=== PATIENT | male | born 1965 | race African-American/Black ===

== ENCOUNTER 2019-02-19 09:11 | Emergency (ER) | payer MEDICAID ==
[~2019-02-19] VITALS: Ht 175.3 cm; Wt 104.4 kg
[2019-02-19 09:21] VITALS: BP 150/87
[2019-02-19] MEDS ORDERED: BLOOD GLUCOSE MONITORING 1 DEV DEV FS ONE (09:35)
--- NOTE | 2019-02-19 09:38 | NUR ---
BIB SELF. AAO X4, FULL CLEAR SPEECH. C/O FRONTAL HEADACHE 7/10 PAIN AND "HIGH BLOOD PRESSURE" X 3 DAYS. 149/95 AT HOME THIS AM. TOOK ASPIRIN 81 MG AND AMLODIPINE UNKNOWN DOSAGE TODAY. INCREASED URINARY FREQUENCY X 2 YEARS. DENIES N/V, DIZZINESS, SOB AND BLURRED VISION. STEADY GAIT. PERRLA, BRISK 3 MM. EQUAL HONORIO STRENGTH TO UPPER AND LOWER EXTREMITIES. HOB UP. BED SIDE RAILS UP X1. ON LOW BED POSITION, LOCKED. ER MADE AWARE OF PT STATUS.
--- NOTE | 2019-02-19 09:38 | NUR ---
PATIENT AMBULATED TO BED 3.
--- NOTE | 2019-02-19 10:07 | NUR ---
DR ROSEN AT BEDSIDE FOR PT EVALUATION
[2019-02-19 10:41] LABS: BASOPHILS % (AUTO) 1.3 % (0.0-2.0); EOSINOPHILS # (AUTO) 0.2 K/uL (0-0.4); EOSINOPHILS % (AUTO) 5.7 % (0.0-4.0); HEMATOCRIT 45.1 % (36-52); HEMOGLOBIN 15.7 g/dL (12.0-18.0); LYMPHOCYTES # (AUTO) 1.4 K/uL (2.0-11.5); LYMPHOCYTES % (AUTO) 38.2 % (20.5-51.1); MEAN CORPUSCULAR HEMOGLOBIN 34 pg (27-31); MEAN CORPUSCULAR HGB CONC 35 g/dL (33-37); MEAN CORPUSCULAR VOLUME 96.3 fL (80-94); MONOCYTES # (AUTO) 0.3 K/uL (0.8-1.0); MONOCYTES % (AUTO) 8.2 % (1.7-9.3); NEUTROPHILS # (AUTO) 1.7 K/uL (1.8-7.7); NEUTROPHILS % (AUTO) 46.6 % (42.2-75.2); PLATELET COUNT (AUTO) 164 K/uL (140-450); RED BLOOD CELL COUNT(AUTO) 4.69 MIL/uL (4.20-6.10); RED CELL DISTRIBUTION WIDTH 12.7 % (11.6-13.7); WHITE BLOOD COUNT (AUTO) 3.6 K/uL (4.8-10.8)
[2019-02-19 10:54] LABS: ANION GAP 11.1 (8-16); CARBON DIOXIDE 27.7 mmol/L (21-32); CREATININE 1.1 mg/dL (0.7-1.3); POTASSIUM 3.8 mmol/L (3.5-5.1)
[2019-02-19 11:00] LABS: ALBUMIN 3.7 g/dL (3.4-5.0); TOTAL BILIRUBIN 0.6 mg/dL (0.0-1.0)
--- NOTE | 2019-02-19 11:10 | NUR ---
PT AAOX4. FULL CLEAR SPEECH. CONVERSATING APPROPRIATELY. NO SIGNS AND SYMPTOMS OF DISTRESS NOTED.
[2019-02-19 11:29] LABS: APPEARANCE,URINE CLEAR (CLEAR); BILIRUBIN,URINE NEGATIVE (NEGATIVE); BLOOD, URINE NEGATIVE (NEGATIVE); LEUKOCYTE ESTERASE ,URINE NEGATIVE (NEGATIVE); NITRITE, URINE NEGATIVE (NEGATIVE); UGLUCOSE NEGATIVE (NEGATIVE)
[2019-02-19 11:58] LABS: COLOR,URINE ORANGE (YELLOW)
[2019-02-19 12:01] LABS: RBC,URINE NONE SEEN /HPF (0-5); WBC,URINE NONE SEEN /HPF (0-5)
--- NOTE | 2019-02-19 12:10 | NUR ---
PT AAO X4. ABLE TO VERBALIZE NEEDS. NO SIGNS AND SYMPTOMS OF DISTRESS NOTED.
--- NOTE | 2019-02-19 13:15 | NUR ---
AAO X4. ABLE TO VERBALIZE NEEDS. NO SIGNS AND SYMPTOMS OF DISTRESS NOTED. AMBULATED TO THE BATHROOM WITH STEADY GAIT.
[2019-02-19 14:25] VITALS: BP 137/68
--- NOTE | 2019-02-19 14:25 | NUR ---
Patient discharged with v/s stable. Written and verbal after care instructions given and explained. Patient alert, oriented and verbalized understanding of instructions. Ambulatory with steady gait. All questions addressed prior to discharge. ID band removed. Patient advised to follow up with PMD. Rx of Lisinopril, [place] 5mg-325 mg given. Patient educated on indication of medication including possible reaction and side effects. Opportunity to ask questions provided and answered.
== END 2019-02-19 14:25 | disposition home or self-care (01) ==
LOC: MED 09:11
DX: I10 Essential (primary) hypertension (principal); R35.8 Other polyuria; R51 Headache; F41.9 Anxiety disorder, unspecified
CPT/HCPCS: 36415; 70450; 80053; 81001; 82948; 83036; 85025; 99284

== ENCOUNTER 2019-04-02 22:54 | Emergency (ER) | payer MEDICAID ==
[~2019-04-02] VITALS: Ht 170.2 cm; Wt 81.6 kg
[2019-04-02 22:55] VITALS: BP 141/90
--- NOTE | 2019-04-02 22:55 | NUR ---
TO BED # 01 AMBULATORY
--- NOTE | 2019-04-02 23:09 | NUR ---
Dr. Osei examining patient.
--- NOTE | 2019-04-02 23:10 | NUR ---
PT TO ED WITH C/O 8/10 CP TO L SIDE. DENIES RADIATION. DENIES N/V. PT REPORTS PAIN UPON TAKING A BREATH. NO OBVIOUS DISTRESS NOTED. NO PERIPHERAL EDEMA PRESENT. HEART SOUNDS WNL, S1 AND S2 HEARD. LUNG SOUNDS CLEAR TO ASCULTATION. PT PLACED INTO BED, MD AT BEDSIDE. PT ATTACHED TO CONTINOUS CARDIAC MONITORING.
[2019-04-02] MEDS ORDERED: MORPHINE SULFATE 4 MG/ML SYR IVP ONE (23:15)
[2019-04-02] MEDS ORDERED: NITROGLYCERIN 0.4 MG TAB SL ONE (23:15)
[2019-04-02] MEDS ORDERED: ASPIRIN 81 MG TAB.CHEW PO ONE (23:15)
[2019-04-02 23:27] LABS: EOSINOPHILS # (AUTO) 0.2 K/uL (0-0.4); EOSINOPHILS % (AUTO) 4.4 % (0.0-4.0); HEMATOCRIT 41.1 % (36-52); HEMOGLOBIN 14.4 g/dL (12.0-18.0); LYMPHOCYTES # (AUTO) 2.2 K/uL (2.0-11.5); LYMPHOCYTES % (AUTO) 48.1 % (20.5-51.1); MEAN CORPUSCULAR HEMOGLOBIN 34 pg (27-31); MEAN CORPUSCULAR HGB CONC 35 g/dL (33-37); MEAN CORPUSCULAR VOLUME 98.1 fL (80-94); MONOCYTES # (AUTO) 0.3 K/uL (0.8-1.0); MONOCYTES % (AUTO) 6.4 % (1.7-9.3); NEUTROPHILS # (AUTO) 1.8 K/uL (1.8-7.7); NEUTROPHILS % (AUTO) 40.1 % (42.2-75.2); PLATELET COUNT (AUTO) 161 K/uL (140-450); RED BLOOD CELL COUNT(AUTO) 4.19 MIL/uL (4.20-6.10); RED CELL DISTRIBUTION WIDTH 12.7 % (11.6-13.7); WHITE BLOOD COUNT (AUTO) 4.5 K/uL (4.8-10.8)
[2019-04-02 23:39] LABS: ANION GAP 7.7 (8-16); CREATININE 1.3 mg/dL (0.7-1.3); POTASSIUM 3.7 mmol/L (3.5-5.1)
[2019-04-02 23:50] LABS: ALBUMIN 3.7 g/dL (3.4-5.0); TOTAL BILIRUBIN 0.3 mg/dL (0.0-1.0)
[2019-04-03] MEDS ORDERED: DICYCLOMINE HCL LIQUID 20 MG, ALUMINUM HYD/MAG/SIMETHICONE 30 ML, LIDOCAINE VISCOUS 2% ... PO ONE ×3
[2019-04-03 00:37] VITALS: BP 136/89
--- NOTE | 2019-04-03 00:38 | NUR ---
Patient discharged with v/s stable. Written and verbal after care instructions given and explained. Patient alert, oriented and verbalized understanding of instructions. Ambulatory with steady gait. All questions addressed prior to discharge. ID band removed. Patient advised to follow up with PMD. Rx of Prilosec given. Patient educated on indication of medication including possible reaction and side effects. Opportunity to ask questions provided and answered.
== END 2019-04-03 00:38 | disposition home or self-care (01) ==
LOC: MED 22:54
DX: K21.9 Gastro-esophageal reflux disease without esophagitis (principal); I10 Essential (primary) hypertension
CPT/HCPCS: 36415; 71045; 80053; 83880; 84484; 85025; 85379; 93005; 96374; 99284; J2270; Q0092

== ENCOUNTER 2019-04-17 09:39 | Emergency (ER) | payer MEDICAID ==
[~2019-04-17] VITALS: Ht 177.8 cm; Wt 90.7 kg
[2019-04-17 09:41] VITALS: BP 160/113
--- NOTE | 2019-04-17 09:56 | NUR ---
PT AMBULATED TO BED 11
--- NOTE | 2019-04-17 09:58 | NUR ---
DR PINK EVALUATING PT AT BEDSIDE.
--- NOTE | 2019-04-17 10:03 | NUR ---
PT BIB SELF WITH C/O GENERALIZED ABDOMINAL PAIN X 5 DAYS. +DIARRHEA. DENIES NAUSEA/VOMITING, FEVER; AFEBRILE AT THIS TIME. PT STATES PAIN IS 3/10.
[2019-04-17] MEDS ORDERED: metroNIDAZOLE 500 MG/NS PREMIX 100 ML IV ONE (10:05)
[2019-04-17] MEDS ORDERED: LOPERAMIDE 2 MG CAP PO ONE (10:05)
[2019-04-17] MEDS ORDERED: cloNIDine 0.1 MG TAB PO ONE (10:05)
[2019-04-17] MEDS ORDERED: KETOROLAC 30 MG/ML VIAL IVP ONE (10:05)
[2019-04-17] MEDS ORDERED: NACL 0.9% 1,000 ML IV ONE (10:05)
[2019-04-17] MEDS ORDERED: NACL 0.9% 2,000 ML IV SCH (10:05)
[2019-04-17] MEDS ORDERED: DICYCLOMINE HCL LIQUID 10 MG/5 ML UDC PO ONE (10:05)
[2019-04-17] MEDS ORDERED: MORPHINE SULFATE 4 MG/ML SYR IVP ONE (10:05)
--- NOTE | 2019-04-17 10:38 | NUR ---
lab at bedside.
[2019-04-17 10:51] LABS: BASOPHILS % (AUTO) 0.7 % (0.0-2.0); EOSINOPHILS # (AUTO) 0.1 K/uL (0-0.4); EOSINOPHILS % (AUTO) 2.7 % (0.0-4.0); HEMATOCRIT 41.7 % (36-52); HEMOGLOBIN 14.5 g/dL (12.0-18.0); LYMPHOCYTES # (AUTO) 1.7 K/uL (2.0-11.5); LYMPHOCYTES % (AUTO) 49.9 % (20.5-51.1); MEAN CORPUSCULAR HEMOGLOBIN 34 pg (27-31); MEAN CORPUSCULAR HGB CONC 35 g/dL (33-37); MEAN CORPUSCULAR VOLUME 97.3 fL (80-94); MONOCYTES # (AUTO) 0.5 K/uL (0.8-1.0); MONOCYTES % (AUTO) 14.3 % (1.7-9.3); NEUTROPHILS # (AUTO) 1.1 K/uL (1.8-7.7); NEUTROPHILS % (AUTO) 32.4 % (42.2-75.2); PLATELET COUNT (AUTO) 177 K/uL (140-450); RED BLOOD CELL COUNT(AUTO) 4.29 MIL/uL (4.20-6.10); RED CELL DISTRIBUTION WIDTH 12.7 % (11.6-13.7); WHITE BLOOD COUNT (AUTO) 3.4 K/uL (4.8-10.8)
[2019-04-17 11:00] LABS: ACETONE, SERUM NEGATIVE (NEGATIVE)
[2019-04-17 11:17] LABS: ALBUMIN 3.6 g/dL (3.4-5.0); AMYLASE 62 U/L (25-115); ANION GAP 11.3 (8-16); ASPARTATE AMINOTRANSFERASE 20 U/L (15-37); CARBON DIOXIDE 27.7 mmol/L (21-32); CHLORIDE 107 mmol/L (98-107); CREATININE 1.3 mg/dL (0.7-1.3); GFR ARICAN-AMERICAN 74 mL/min (>90); GLUCOSE 90 mg/dL (74-106); LIPASE 185 U/L (73-393); SODIUM SERUM 142 mmol/L (136-145); TOTAL BILIRUBIN 0.5 mg/dL (0.0-1.0); UREA NITROGEN, BLOOD 14 mg/dL (7-18)
[2019-04-17 11:21] LABS: APPEARANCE,URINE CLEAR (CLEAR); BILIRUBIN,URINE NEGATIVE (NEGATIVE); BLOOD, URINE NEGATIVE (NEGATIVE); COLOR,URINE YELLOW (YELLOW); LEUKOCYTE ESTERASE ,URINE NEGATIVE (NEGATIVE); NITRITE, URINE NEGATIVE (NEGATIVE); UGLUCOSE NEGATIVE (NEGATIVE)
[2019-04-17 11:34] LABS: PROTHROMBIN TIME 10.2 secs (10.8-13.4)
--- NOTE | 2019-04-17 12:25 | NUR ---
IV removed, catheter intact and site benign. Applied folded 4x4 gauze and tape to stop bleeding.
[2019-04-17 12:26] VITALS: BP 123/87
--- NOTE | 2019-04-17 12:26 | NUR ---
Patient discharged with v/s stable. Written and verbal after care instructions given and explained. Patient alert, oriented and verbalized understanding of instructions. Ambulatory with steady gait. All questions addressed prior to discharge. ID band removed. Patient advised to follow up with PMD. Rx of IMODIUM, CLONIDINE AND ATARAX given. Patient educated on indication of medication including possible reaction and side effects. Opportunity to ask questions provided and answered.
== END 2019-04-17 12:26 | disposition home or self-care (01) ==
LOC: MED 09:39
DX: R19.7 Diarrhea, unspecified (principal); R10.32 Left lower quadrant pain; I10 Essential (primary) hypertension
CPT/HCPCS: 36415; 74176; 80053; 81003; 82009; 82150; 83605; 83690; 83735; 84484; 85025; 85610; 93005; 96365; 99284; J3490; J7030; J1885; J2270

== ENCOUNTER 2021-07-16 06:29 | Emergency (ER) | payer MEDICAID, OTHER ==
[~2021-07-16] VITALS: Ht 172.7 cm; Wt 72.6 kg
[2021-07-16 06:50] VITALS: BP 138/92
--- NOTE | 2021-07-16 06:50 | NUR ---
TO BED AMBULATORY
--- NOTE | 2021-07-16 06:59 | NUR ---
DR. GLOVER AT PT BEDSIDE FOR FURTHER EVALUATION.
[2021-07-16] MEDS ORDERED: KETOROLAC 30 MG/ML VIAL IVP ONE (07:05)
--- NOTE | 2021-07-16 07:24 | NUR ---
CONSENT FOR CT WITH CONSTRAST SIGNED BEDSIDE AND PLACED INTO PATIENT CHART
--- NOTE | 2021-07-16 07:30 | NUR ---
56 Y/O MALE C/O LT LOWER BACK PAIN FOR 1 WEEK. NON RADIATING. DENIES ANY NAUSEA/VOMITING, DIARRHEA. WAS SEEN BY PCP, STATES PAIN HAS NOT BEEN RELEIVED. TENDER UPON PALPATION. MEDHX: HTN NKA
[2021-07-16 08:06] LABS: BASOPHILS # (AUTO) 0.1 K/uL (0.00-0.22); BASOPHILS % (AUTO) 1.6 % (0.0-2.0); EOSINOPHILS # (AUTO) 0.1 K/uL (0-0.4); EOSINOPHILS % (AUTO) 1.6 % (0.0-4.0); HEMATOCRIT 46.9 % (36-52); HEMOGLOBIN 16.2 g/dL (12.0-18.0); LYMPHOCYTES # (AUTO) 1.6 K/uL (2.0-11.5); LYMPHOCYTES % (AUTO) 35.4 % (20.5-51.1); MEAN CORPUSCULAR HEMOGLOBIN 35 pg (27-31); MEAN CORPUSCULAR HGB CONC 35 g/dL (33-37); MEAN CORPUSCULAR VOLUME 100.1 fL (80-94); MONOCYTES # (AUTO) 0.2 K/uL (0.8-1.0); MONOCYTES % (AUTO) 4.4 % (1.7-9.3); NEUTROPHILS # (AUTO) 2.6 K/uL (1.8-7.7); PLATELET COUNT (AUTO) 180 K/uL (140-450); RED BLOOD CELL COUNT(AUTO) 4.69 MIL/uL (4.20-6.10); RED CELL DISTRIBUTION WIDTH 12.6 % (11.6-13.7); WHITE BLOOD COUNT (AUTO) 4.5 K/uL (4.8-10.8)
[2021-07-16 08:19] LABS: ANION GAP 9.2 (8-16); CARBON DIOXIDE 30.5 mmol/L (21-32); CREATININE 1.1 mg/dL (0.6-1.3); POTASSIUM 4.7 mmol/L (3.5-5.1); TOTAL BILIRUBIN 0.6 mg/dL (0.0-1.0)
[2021-07-16 08:27] LABS: APPEARANCE,URINE CLEAR (CLEAR); BILIRUBIN,URINE NEGATIVE (NEGATIVE); BLOOD, URINE NEGATIVE (NEGATIVE); COLOR,URINE YELLOW (YELLOW); LEUKOCYTE ESTERASE ,URINE NEGATIVE (NEGATIVE); NITRITE, URINE NEGATIVE (NEGATIVE); UGLUCOSE NEGATIVE (NEGATIVE)
--- NOTE | 2021-07-16 08:28 | NUR ---
PT TAKEN TO CT SCAN VIA GERARDO
--- NOTE | 2021-07-16 08:38 | NUR ---
PT TAKEN TO ER BED 8 VIA GERARDO.
[2021-07-16] MEDS ORDERED: AMOX1TER15 PO ×2 (09:28→09:50)
[2021-07-16] MEDS ORDERED: IBUP-2213 PO ×2 (09:28→09:50)
[2021-07-16 09:54] VITALS: BP 138/92
--- NOTE | 2021-07-16 09:54 | NUR ---
Patient discharged with v/s stable. Written and verbal after care instructions given and explained. Patient alert, oriented and verbalized understanding of instructions. Ambulatory with steady gait. All questions addressed prior to discharge. ID band removed. Patient advised to follow up with PMD. Rx of AUGMENTIN AND IBUPROFEN given. Patient educated on indication of medication including possible reaction and side effects. Opportunity to ask questions provided and answered.
== END 2021-07-16 09:54 | disposition home or self-care (01) ==
LOC: MED 06:29
DX: K57.92 Diverticulitis of intestine, part unspecified, without perforation or abscess without bleeding (principal)
CPT/HCPCS: 36415; 71045; 74177; 80053; 81003; 84484; 85025; 93005; 96374; 99285; J1885; Q0092; Q9967

== ENCOUNTER 2021-10-08 00:51 | Emergency (ER) | payer OTHER ==
[~2021-10-08] VITALS: Ht 172.7 cm; Wt 101.3 kg
[~2021-10-08 00:51] MED LIST: AMOX1TER15 PO; IBUP-2213 PO
[2021-10-08 01:07] VITALS: BP 115/77
--- NOTE | 2021-10-08 01:10 | NUR ---
TO LOBBY A/W BED AMBULATORY
[2021-10-08] MEDS ORDERED: DEXAMETHASONE 10 MG/ML VIAL IM ONE (02:25)
[2021-10-08] MEDS ORDERED: KETOROLAC 60 MG/2 ML VIAL IM ONE ×2 (02:25→04:23)
[2021-10-08] MEDS ORDERED: AMOXICILLIN 500 MG CAP PO ONE (03:40)
[2021-10-08] MEDS ORDERED: AMOX500C25 PO (03:40)
[2021-10-08] MEDS ORDERED: DEXAMETHASONE 10 MG/ML VIAL ONE (04:23)
--- NOTE | 2021-10-08 04:30 | NUR ---
SWABS OBTAINED AND SENT TO LAB
[2021-10-08 04:47] VITALS: BP 115/77
--- NOTE | 2021-10-08 05:52 | NUR ---
RECEIVED JAMES RESULTS = COVID (+). ATTEMPT TO CONTACT PT, PHONE NOT IN SERVICE. ADDITIONAL CALL TO [facility]ILY [facility], MESSAGE LEFT ASKING PT TO RETURN CALL
== END 2021-10-08 04:47 | disposition home or self-care (01) ==
LOC: MED 00:51
DX: U07.1 COVID-19 (principal); J02.9 Acute pharyngitis, unspecified; I10 Essential (primary) hypertension; Z79.899 Other long term (current) drug therapy
CPT/HCPCS: 87081; 87426; 87804; 96372; 99284; J1100; J1885

== ENCOUNTER 2022-03-26 14:29 | Emergency (ER) | payer OTHER ==
[~2022-03-26] VITALS: Ht 177.8 cm; Wt 83.9 kg
[~2022-03-26 14:29] MED LIST changes: +AMOX500C25 PO
[2022-03-26 14:52] VITALS: BP 134/93
--- NOTE | 2022-03-26 14:55 | NUR ---
PT AMBULATED TO BED 02.
--- NOTE | 2022-03-26 15:13 | NUR ---
CAD SPECIALIST AT PT BEDSIDE.
--- NOTE | 2022-03-26 15:14 | NUR ---
DR. OSUNA AT PT BEDSIDE FOR FURTHER EVALUATION.
[2022-03-26] MEDS ORDERED: KETOROLAC 30 MG/ML VIAL IM ONE (15:20)
[2022-03-26] MEDS ORDERED: DICYCLOMINE 10 MG CAP PO ONE (15:20)
[2022-03-26] MEDS ORDERED: ALUMINUM HYD/MAG/SIMETHICONE 30 ML UDC PO ONE (15:20)
[2022-03-26 15:22] LABS: BASOPHILS % (AUTO) 0.8 % (0.0-2.0); EOSINOPHILS # (AUTO) 0.1 K/uL (0-0.4); EOSINOPHILS % (AUTO) 1.5 % (0.0-4.0); HEMATOCRIT 42.6 % (36-52); HEMOGLOBIN 14.8 g/dL (12.0-18.0); LYMPHOCYTES % (AUTO) 52.5 % (20.5-51.1); MEAN CORPUSCULAR HEMOGLOBIN 34 pg (27-31); MEAN CORPUSCULAR HGB CONC 35 g/dL (33-37); MEAN CORPUSCULAR VOLUME 97.5 fL (80-94); MONOCYTES # (AUTO) 0.3 K/uL (0.8-1.0); MONOCYTES % (AUTO) 8.1 % (1.7-9.3); NEUTROPHILS # (AUTO) 1.4 K/uL (1.8-7.7); NEUTROPHILS % (AUTO) 37.1 % (42.2-75.2); PLATELET COUNT (AUTO) 170 K/uL (140-450); RED BLOOD CELL COUNT(AUTO) 4.37 MIL/uL (4.20-6.10); RED CELL DISTRIBUTION WIDTH 13.2 % (11.6-13.7); WHITE BLOOD COUNT (AUTO) 3.7 K/uL (4.8-10.8)
[2022-03-26 15:44] LABS: ALBUMIN 3.8 g/dL (3.4-5.0); ANION GAP 9.3 (8-16); CARBON DIOXIDE 29.8 mmol/L (21-32); CREATININE 1.2 mg/dL (0.6-1.3); POTASSIUM 4.1 mmol/L (3.5-5.1); TOTAL BILIRUBIN 0.6 mg/dL (0.0-1.0)
[2022-03-26] MEDS ORDERED: BEN10 PO (17:09)
[2022-03-26] MEDS ORDERED: ALUM355S59 PO (17:09)
[2022-03-26 17:35] VITALS: BP 130/89
--- NOTE | 2022-03-26 17:35 | NUR ---
Patient discharged with v/s stable. Written and verbal after care instructions given FOR DIARRHEA and explained. Patient alert, oriented and verbalized understanding of instructions. Ambulatory with steady gait. All questions addressed prior to discharge. ID band removed. Patient advised to follow up with PMD. Rx of BENTYL AND MAALOX given. Patient educated on indication of medication including possible reaction and side effects. Opportunity to ask questions provided and answered.
== END 2022-03-26 17:35 | disposition home or self-care (01) ==
LOC: MED 14:29
DX: R19.7 Diarrhea, unspecified (principal); I10 Essential (primary) hypertension; Z79.899 Other long term (current) drug therapy; Z79.2 Long term (current) use of antibiotics; Z79.1 Long term (current) use of non-steroidal anti-inflammatories (NSAID)
CPT/HCPCS: 36415; 80053; 85025; 96372; 99283; J1885

== ENCOUNTER 2023-01-31 14:37 | Emergency (ER) | payer OTHER ==
[~2023-01-31] VITALS: Ht 174 cm; Wt 109.1 kg
[~2023-01-31 14:37] MED LIST changes: +ALUM355S59 PO; +BEN10 PO
[2023-01-31 14:47] VITALS: BP 140/89
--- NOTE | 2023-01-31 14:51 | NUR ---
pt to the bathroom for urine collection
--- NOTE | 2023-01-31 14:53 | NUR ---
pt to bed 2 ambulatory
[2023-01-31] MEDS ORDERED: DICYCLOMINE HCL LIQUID 20 MG, ALUMINUM HYD/MAG/SIMETHICONE 30 ML, LIDOCAINE VISCOUS 2% ... PO ONE ×3 (15:05)
[2023-01-31] MEDS ORDERED: ALUMINUM HYD/MAG/SIMETHICONE 30 ML UDC ONE (15:08)
[2023-01-31] MEDS ORDERED: DICYCLOMINE HCL LIQUID 10 MG/5 ML UDC ONE (15:08)
[2023-01-31 15:17] LABS: APPEARANCE,URINE CLEAR (CLEAR); BILIRUBIN,URINE NEGATIVE (NEGATIVE); BLOOD, URINE NEGATIVE (NEGATIVE); COLOR,URINE YELLOW (YELLOW); LEUKOCYTE ESTERASE ,URINE NEGATIVE (NEGATIVE); NITRITE, URINE NEGATIVE (NEGATIVE); UGLUCOSE NEGATIVE (NEGATIVE)
[2023-01-31 15:18] LABS: BASOPHILS % (AUTO) 0.7 % (0.0-2.0); EOSINOPHILS # (AUTO) 0.2 K/uL (0-0.4); EOSINOPHILS % (AUTO) 3.6 % (0.0-4.0); HEMATOCRIT 41.9 % (36-52); HEMOGLOBIN 14.7 g/dL (12.0-18.0); LYMPHOCYTES # (AUTO) 1.8 K/uL (2.0-11.5); LYMPHOCYTES % (AUTO) 39.8 % (20.5-51.1); MEAN CORPUSCULAR HEMOGLOBIN 34 pg (27-31); MEAN CORPUSCULAR HGB CONC 35 g/dL (33-37); MEAN CORPUSCULAR VOLUME 97.1 fL (80-94); MONOCYTES # (AUTO) 0.3 K/uL (0.8-1.0); MONOCYTES % (AUTO) 7.2 % (1.7-9.3); NEUTROPHILS # (AUTO) 2.3 K/uL (1.8-7.7); NEUTROPHILS % (AUTO) 48.7 % (42.2-75.2); PLATELET COUNT (AUTO) 175 K/uL (140-450); RED BLOOD CELL COUNT(AUTO) 4.32 MIL/uL (4.20-6.10); RED CELL DISTRIBUTION WIDTH 12.7 % (11.6-13.7); WHITE BLOOD COUNT (AUTO) 4.6 K/uL (4.8-10.8)
[2023-01-31 15:37] LABS: ALBUMIN 3.8 g/dL (3.4-5.0); ANION GAP 10.6 (8-16); CARBON DIOXIDE 28.8 mmol/L (21-32); CREATININE 1.2 mg/dL (0.6-1.3); POTASSIUM 3.4 mmol/L (3.5-5.1); TOTAL BILIRUBIN 0.5 mg/dL (0.0-1.0)
[2023-01-31] MEDS ORDERED: MAG355OR2 PO ×2 (16:24→16:32)
[2023-01-31] MEDS ORDERED: OMEP20EC11 PO ×2 (16:24→16:32)
[2023-01-31 16:42] VITALS: BP 126/78
--- NOTE | 2023-01-31 16:43 | NUR ---
Patient discharged with v/s stable. Written and verbal after care instructions given and explained. Patient alert, oriented and verbalized understanding of instructions. Ambulatory with steady gait. All questions addressed prior to discharge. ID band removed. Patient advised to follow up with PMD. Rx of Maalox maximum strength, and Prilosec given. Patient educated on indication of medication including possible reaction and side effects. Opportunity to ask questions provided and answered.
== END 2023-01-31 16:42 | disposition home or self-care (01) ==
LOC: MED 14:37
DX: K29.70 Gastritis, unspecified, without bleeding (principal); E87.6 Hypokalemia; I10 Essential (primary) hypertension; Z79.899 Other long term (current) drug therapy
CPT/HCPCS: 36415; 76705; 80053; 81003; 83690; 84484; 85025; 93005; 99284; Q0092

== ENCOUNTER 2023-12-27 10:42 | Emergency (ER) | payer OTHER ==
[~2023-12-27] VITALS: Ht 172.7 cm; Wt 110.2 kg
[~2023-12-27 10:42] MED LIST changes: +MAG355OR2 PO; +OMEP20EC11 PO
[2023-12-27 10:46] VITALS: BP 123/79; PULSE 66; RESP 18; TEMP 98.2; O2SAT 98
[2023-12-27 11:46] LABS: BASOPHILS % (AUTO) 1.2 % (0.0-2.0); EOSINOPHILS # (AUTO) 0.1 K/uL (0-0.4); HEMATOCRIT 42.3 % (36-52); HEMOGLOBIN 15.1 g/dL (12.0-18.0); LYMPHOCYTES # (AUTO) 1.8 K/uL (2.0-11.5); LYMPHOCYTES % (AUTO) 55.2 % (20.5-51.1); MEAN CORPUSCULAR HEMOGLOBIN 35 pg (27-31); MEAN CORPUSCULAR HGB CONC 36 g/dL (33-37); MEAN CORPUSCULAR VOLUME 96.9 fL (80-94); MONOCYTES # (AUTO) 0.2 K/uL (0.8-1.0); MONOCYTES % (AUTO) 6.2 % (1.7-9.3); NEUTROPHILS # (AUTO) 1.2 K/uL (1.8-7.7); NEUTROPHILS % (AUTO) 35.4 % (42.2-75.2); PLATELET COUNT (AUTO) 160 K/uL (140-450); RED BLOOD CELL COUNT(AUTO) 4.37 MIL/uL (4.20-6.10); RED CELL DISTRIBUTION WIDTH 12.8 % (11.6-13.7); WHITE BLOOD COUNT (AUTO) 3.3 K/uL (4.8-10.8)
[2023-12-27] MEDS ORDERED: ALUMINUM HYD/MAG/SIMETHICONE 30 ML UDC ONE (11:58)
[2023-12-27] MEDS ORDERED: DICYCLOMINE HCL LIQUID 10 MG/5 ML UDC ONE (11:58)
[2023-12-27] MEDS: ONDANSETRON 4 MG ODT PO ONE (12:06)
[2023-12-27] MEDS: ACETAMINOPHEN EXTRA STRENGTH 500 MG TAB PO ONE (12:07)
[2023-12-27] MEDS: DICYCLOMINE HCL LIQUID 20 MG, ALUMINUM HYD/MAG/SIMETHICONE 30 ML, LIDOCAINE VISCOUS 2% ... PO ONE (12:08)
[2023-12-27 12:40] LABS: ALANINE AMINOTRANSFERASE 33 U/L (12-78); ALBUMIN 3.9 g/dL (3.4-5.0); ALKALINE PHOSPHATASE 52 U/L (50-136); ANION GAP 10.4 (8-16); ASPARTATE AMINOTRANSFERASE 25 U/L (15-37); CALCIUM 8.9 mg/dL (8.5-10.1); CARBON DIOXIDE 29.2 mmol/L (21-32); CHLORIDE 104 mmol/L (98-107); CREATININE 1.1 mg/dL (0.6-1.3); GFR ARICAN-AMERICAN 88 mL/min (>90); GFR NON ARICAN-AMERICAN 73 mL/min (>90); GLUCOSE 120 mg/dL (74-106); POTASSIUM 3.6 mmol/L (3.5-5.1); SODIUM SERUM 140 mmol/L (136-145); TOTAL BILIRUBIN 0.5 mg/dL (0.0-1.0); TOTAL PROTEIN, SERUM 7.3 g/dL (6.4-8.2); UREA NITROGEN, BLOOD 12 mg/dL (7-18)
[2023-12-27] MEDS ORDERED: IBUP-2213 PO (13:36)
[2023-12-27] MEDS ORDERED: DICL100G32 TP (13:36)
[2023-12-27] MEDS ORDERED: AMOX1TAB8 PO (13:36)
[2023-12-27] MEDS ORDERED: ACET-10509 PO (13:38)
[2023-12-27 13:45] VITALS: BP 122/82; PULSE 78; RESP 16; TEMP 98; O2SAT 99
== END 2023-12-27 13:45 | disposition home or self-care (01) ==
LOC: MED 10:42
DX: R07.9 Chest pain, unspecified (principal); J98.11 Atelectasis; D72.819 Decreased white blood cell count, unspecified; I10 Essential (primary) hypertension; Z79.899 Other long term (current) drug therapy
CPT/HCPCS: 36415; 71045; 80053; 83690; 84484; 85025; 85379; 93005; 99285; Q0162